=== PATIENT | male | born 1965 | race Caucasian/White ===

== ENCOUNTER 2019-04-08 15:18 | Inpatient (IN) | payer MEDICARE ==
[~2019-04-08] VITALS: Ht 190.5 cm; Wt 114.8 kg
--- NOTE | 2019-04-08 19:00 | NUR ---
REPORT RECEIVED. PATIENT HAS NOT ARRIVED TO ROOM AT THIS TIME.
--- NOTE | 2019-04-08 21:00 | NUR ---
PATIENT ARRIVED VIA STRETCHER ESCORTED BY EMS STAFF. PATIENT HAS NO COMPLAINTS AT THIS TIME. NO DISTRESS NOTED.
[2019-04-08] MEDS ORDERED: XARELTO15 MG PO (22:32)
[2019-04-08] MEDS ORDERED: LIPITOR40 MG PO (22:33)
[2019-04-08] MEDS ORDERED: XANAX0.5 MG PO (22:33)
[2019-04-08] MEDS ORDERED: NORVASC10 MG PO (22:34)
[2019-04-08] MEDS ORDERED: ZITHROMAX 500M500 MG IV (22:34)
[2019-04-08] MEDS ORDERED: COREG12.5 MG PO (22:35)
[2019-04-08] MEDS ORDERED: ROCEPHIN 1 GM/D51 G1 IV (22:35)
[2019-04-08] MEDS ORDERED: HUMALOG 30100 UNITS/ IM (22:36)
[2019-04-08] MEDS ORDERED: LANTUS SOL100 UNIT/1 IM (22:36)
[2019-04-08] MEDS ORDERED: IPRAT-ALBUT 0.5-3 ML NEB (22:37)
[2019-04-08] MEDS ORDERED: OXYCONTIN10 MG PO (22:38)
[2019-04-08] MEDS ORDERED: MORPHINE SULFAT30 M4 PO (22:38)
--- NOTE | 2019-04-09 02:02 | NUR ---
PATIENT SITTING UP TO SIDE OF BED. NO COMPLAINTS AT THIS TIME. NO DISTRESS NOTED.
[2019-04-09 02:29] VITALS: BP 129/69; BMI 31.6
[2019-04-09 04:30] VITALS: BP 130/72
[2019-04-09 07:04] LABS: BASOPHILS 0.1 % (0-2); EOSINOPHILS 0.1 % (0-7); HEMATOCRIT 27.7 % (42.0-54.0); HEMOGLOBIN 9.2 g/dL (13.5-17.5); LYMPHOCYTES 10.3 % (15-50); MCH 26.9 pg (26.0-34.0); MCHC 33.2 g/dL (31.0-37.0); MEAN PLATELET VOLUME 10.4 fL (7.4-10.4); MONOCYTES 8.2 % (2-11); NEUTROPHILS 80.3 % (40-80); PLATELET COUNT 245 10x3/uL (130-400); RBC 3.42 10x6/uL (4.20-6.10); RDW 13.5 % (11.5-14.5); WBC 13.7 10x3/uL (4.8-10.8)
--- NOTE | 2019-04-09 07:10 | NUR ---
PATIENT'S FSBS READ HI WITH 2 CHECKS. DEREK ROBLERO NOTIFIED. 20 UNITS OF HUMALOG GIVEN. SLIDING SCALE CHANGED FROM ACHS TO Q6HRS AND BLOOD GLUCOSE LAB ORDERED.
[2019-04-09 07:32] LABS: CALCIUM 7.3 mg/dL (8.5-10.1); CARBON DIOXIDE 17.8 mmol/L (21.0-32.0); CREATININE - SERUM 5.5 mg/dL (0.6-1.3); MAGNESIUM - SERUM 2.3 mg/dL (1.8-2.4); PHOSPHOROUS 5.4 mg/dL (2.5-4.9); POTASSIUM - SERUM 3.8 mmol/L (3.5-5.1)
[2019-04-09 08:17] VITALS: BP 138/69
--- NOTE | 2019-04-09 09:00 | NUR ---
THIS NURSE BROUGHT IN PATIENTS MEDICATIONS. PATIENT ASKED ABOUT MORPHINE. THIS NURSE STATED THAT HE DID NOT HAVE MORPHINE ORDERED. PATIENT KEPT TELLING THIS NURSE HOW HE IS ON MORPHINE TID , 30MLS AT HOME. HE STATED THAT IT WOULD BE BETTER IF HE COULD HAVE IT IV WHILE IN THE HOSPITAL. THIS NURSE STATED THAT WHEN SHE SAW DR. GONZALEZ OR JOSE ROBLERO, SHE WOULD ASK THEM ABOUT THE MORPHINE. PATIENT GOT MAD AT THIS NURSE WHEN HE REPEATED EVERYTHIN HE SAID AND ASKED WHEN DR GONZALEZ OR JOSE WOULD BE IN. THIS NURSE STATED I DON'T KNOW THEIR SCHEDULE AND I CAN'T READ THEIR MIND TO SEE WHEN THEY WILL BE HERE. THIS NURSE STATED THAT ALL THE DOCTOR WILL BE MAKING ROUNDS TODAY. PATIENT THREW HIS MEDICATION CUP ON THE FLOOR. WOULD NOT LET NURSE RECHECK HIS GLUCOSE LEVEL
--- NOTE | 2019-04-09 11:12 | NUR ---
DR ANDERSEN INTO SEE PATIENT. NEW ORDERS RECEIVED. THIS NURSE HAS NOT SEEN DR GONZALEZ OR JOSE ROBLERO ON UNIT. THIS NURSE CALLED JOSE ANAYA TALKED TO HER IN REGARDS OF PATIENTS WANTING MORPHINE 30MG TID. JOSE ROBLERO STATED THAT SHE WILL HAVE TO TALK WITH RENAL AND DR GONZALEZ BEFORE SHE ORDERS ANY MORPHINE FOR THIS PATIENT.
--- NOTE | 2019-04-09 11:47 | NUR ---
Pt admitted overnight to M2 unit. He has history of DM2, RBKA, neuropathy. He has a 2cm x 1.5cm thick callous on the plantar aspect of left foot. There is also a scab/callous 0.5cm x 0.5cm on plantar/midfoot. He states the midfoot callous was from stepping on a tack and not realizing it due to the neuropathy. He has had 2 toes amputated on his left foot. He does not want the callouses "dug out" but wants them "gone". Applied some hydrogel and covered with LP hydrocolloid dressing. Will monitor as needed.
[2019-04-09 12:05] VITALS: BP 136/72
[2019-04-09 12:28] VITALS: Ht 190.5 cm; Wt 114.8 kg
--- NOTE | 2019-04-09 14:53 | NUR ---
I have reviewed this patient and I concur with the Shift Assessment completed by the Licensed Practical Nurse today this shift.
--- NOTE | 2019-04-09 15:06 | NUR ---
DR ALEGRIA INTO SEE PATIENT. NEW ORDERS RECEIVED. PATIENT GIVEN PRN MORPHINE
--- NOTE | 2019-04-09 19:30 | NUR ---
EVENING ROUNDS MADE. PT SITTING UP IN BED. DENIES PAIN AT THIS TIME. DENIES FURTHER NEEDS. FALL PRECAUTIONS IN PLACE. WILL CTM.
[2019-04-09 20:00] VITALS: BP 133/80
[2019-04-10] VITALS: BP 127/73
[2019-04-10 04:00] VITALS: BP 122/76
--- NOTE | 2019-04-10 04:45 | NUR ---
PATIENT C/O PAIN 9/10 "EVERYWHERE". PRN PAIN MED GIVEN, SEE EMAR. CL IN REACH, BED IN LOWESEST POSITION. WILL CTM.
[2019-04-10 05:08] LABS: BASOPHILS 0.1 % (0-2); EOSINOPHILS 0.8 % (0-7); HEMATOCRIT 26.2 % (42.0-54.0); HEMOGLOBIN 8.9 g/dL (13.5-17.5); IMMATURE GRANULOCYTES 1.3 % (0-5); LYMPHOCYTES 14.1 % (15-50); MCV 79.4 fL (80.0-100.0); MEAN PLATELET VOLUME 9.6 fL (7.4-10.4); MONOCYTES 9.6 % (2-11); NEUTROPHILS 74.1 % (40-80); PLATELET COUNT 269 10x3/uL (130-400); RDW 13.4 % (11.5-14.5); WBC 11.9 10x3/uL (4.8-10.8)
[2019-04-10 05:46] LABS: ANION GAP 19.8 mmol/L (8-16); CARBON DIOXIDE 19.4 mmol/L (21.0-32.0); CREATININE - SERUM 4.9 mg/dL (0.6-1.3); PHOSPHOROUS 6.2 mg/dL (2.5-4.9)
[2019-04-10 05:51] LABS: POTASSIUM - SERUM 3.2 mmol/L (3.5-5.1)
[2019-04-10 09:43] VITALS: BP 142/73
[2019-04-10 11:13] LABS: % SATURATION 6 % (15-55); IRON 19 ug/dl (35-150); TOTAL IRON BIND CAPACITY 311 ug/dl (260-445); UNSAT IRON BIND CAPACITY 292 ug/dl (150-375)
[2019-04-10 13:27] VITALS: BP 121/65
--- NOTE | 2019-04-10 13:58 | NUR ---
I have reviewed this patient and I concur with the Shift Assessment completed by the Licensed Practical Nurse today this shift.
[2019-04-10 17:04] VITALS: BP 129/67
--- NOTE | 2019-04-10 19:49 | NUR ---
EVENING ROUNDS MADE. PT SITTING UP IN BED RESTING. DENIES PAIN AT THIS TIME. LARGE ICE WATER PROVIDED. R BKA CLEAN AND DRY. IV TO R FA, [facility]. NORMAL SINUS ON TELE. PT DENIES FURTHER CONCERNS AT THIS TIME. FALL PRECAUTIONS IN PLACE. PROSTETIC AT BEDSIDE. BED LOWERED AND LOCKED. CL IN REACH. WILL CTM.
[2019-04-10 20:00] VITALS: BP 111/64
[2019-04-11] VITALS: BP 111/58
--- NOTE | 2019-04-11 03:28 | NUR ---
I have reviewed this patient and I concur with the Shift Assessment completed by the Licensed Practical Nurse today this shift.
[2019-04-11 04:00] VITALS: BP 145/69
[2019-04-11 04:08] LABS: BASOPHILS 0.4 % (0-2); EOSINOPHILS 0.8 % (0-7); HEMATOCRIT 24.6 % (42.0-54.0); HEMOGLOBIN 8.2 g/dL (13.5-17.5); IMMATURE GRANULOCYTES 1.1 % (0-5); LYMPHOCYTES 22.5 % (15-50); MCH 26.5 pg (26.0-34.0); MCHC 33.3 g/dL (31.0-37.0); MCV 79.6 fL (80.0-100.0); NEUTROPHILS 64.2 % (40-80); PLATELET COUNT 264 10x3/uL (130-400); RBC 3.09 10x6/uL (4.20-6.10); RDW 14.1 % (11.5-14.5); WBC 9.6 10x3/uL (4.8-10.8)
[2019-04-11 04:22] LABS: CREATININE - SERUM 4.6 mg/dL (0.6-1.3); MAGNESIUM - SERUM 1.7 mg/dL (1.8-2.4); PHOSPHOROUS 6.1 mg/dL (2.5-4.9)
[2019-04-11 04:23] LABS: CALCIUM 6.9 mg/dL (8.5-10.1)
--- NOTE | 2019-04-11 08:21 | NUR ---
PT AWAKE ANDORIENTED SITTING ON THE SIDE OF THE BED. PT IS VERY UPSET WITH HOW HIS CARE HAS GONE. HE STATES THAT HE HAS NOT RECIEVED A SHOWER OR LINNEN CHANGE IN 3 DAYS AND FEELS THOUGH HE'S BEEN NEGLECTED. PT STATES HE WILL BE LEAVING IN ABOUT 2 HOURS. HE WOULD LIKE IF HE WAS ABLE TO D/C PROPPERLY BUT HE STATES HE WILL AMA IF HE HAS TOO. I INFORMED THE PT ABOUT THE FACT INSURANCE WILL NOT COVER HIS STAY IF LEAVES AMA, PT STATES "THERE COMES A TIME WHEN IT'S NOT ABOUT MONEY OR INSURANCE SO I'LL BE LEAVING EITHER WAY". HAVE PAGED JOSE TWICE TO GET A D/C ORDER, HAVE NOT HEARD BACK YET.
--- NOTE | 2019-04-11 08:27 | NUR ---
RACHNA DELVALLE OFFERED THE PT A SHOWER, PT REFUSED STATING HE'LL SHOWER AT HOME.
[2019-04-11 08:38] VITALS: BP 131/78
[2019-04-11] MEDS ORDERED: ZPAK PO (10:11)
--- NOTE | 2019-04-11 11:06 | MORECARE ---
CASE MANAGEMENT DISCHARGE SUMMARY PATIENT: CATRINA HEARN D UNIT: [id number] ADM DATE: 04/08/19 AGE: 53 : 67 SEX: M ROOM/BED: D.2103 AUTHOR: NORMA LANG PHYSICIAN: REFERRING PHYSICIAN: NOELLE GONZALEZ MD DATE OF SERVICE: 04/11/19 Discharge Plan Patient Name: CATRINA HEARN Facility: [facility]:[place] : 1965 Planned Disposition: Home Anticipated Discharge Date: 04/11/19 Discharge Date: Expected LOS: 3 Initial Reviewer: [email or web address] Initial Review Date: 04/11/2019 Generated: 04/11/19 12:05 pm DCPIA - Discharge Planning Initial Assessment Updated by [email or web address]: Christopher Hernandez on 04/11/19 11:05 am * Is the patient Alert and Oriented? Yes * How many steps to enter\exit or inside your home? * PCP DR. PITT * Pharmacy [facility] * Preadmission Environment Home with Family * ADLs Independent * Equipment Cane Other Walker Wheelchair * Other Equipment RIGHT LEG PROSTHESIS NO MEDICAL EQUIPMENT PROVIDER PREFERENCE * List name and contact numbers for known caregivers / representatives who currently or will assist patient after discharge: MALLY HEARN, SPOUSE, * Verbal permission to speak to the caregivers and representatives has been obtained from the patient. N/A * Community resources currently utilized None * Please name any agencies selected above. NONE * Additional services required to return to the preadmission environment? No * Can the patient safely return to the preadmission environment? Yes * Has this patient been hospitalized within the prior 30 days at any hospital? No Patient Name: CATRINA HEARN Page [phone] at 1106 All edits/amendments must be made on the electronic document DICTATION DATE: 04/11/19 110 CHIEF LIBRARIAN BRANCH: MARCELINO 04/11/19 110 RPT#: [id number] DC DATE: STATUS: ADM IN [facility] [address] [place] [address] END OF REPORT
--- NOTE | 2019-04-11 11:20 | MORECARE ---
CASE MANAGEMENT DISCHARGE SUMMARY PATIENT: CATRINA HEARN UNIT: [id number] ADM DATE: 04/08/19 AGE: 53 : 67 SEX: M ROOM/BED: D.2103 AUTHOR: PRECIOUSDOC PHYSICIAN: REFERRING PHYSICIAN: NOELLE GONZALEZ MD DATE OF SERVICE: 04/11/19 Discharge Plan Patient Name: CATRINA HEARN Facility: [facility]:[place] : 1965 Planned Disposition: Home Anticipated Discharge Date: 04/11/19 Discharge Date: Expected LOS: 3 Initial Reviewer: [email or web address] Initial Review Date: 04/11/2019 Generated: 04/11/19 12:19 pm Comments DCP- Discharge Planning Updated by [id number]: Christopher Hernandez on 04/11/19 10:[address] Patient Name: CATRINA HEARN Admission Status: Elective Accout number: [id number] Admission Date: 04-08-2019 : 1965 Admission Diagnosis: Attending: NOELLE GONZALEZ Current LOS: 3 Anticipated DC Date: 04-11-2019 Planned Disposition: Home Primary Insurance: MEDICARE A & B Discharge Planning Comments: CM MET WITH PT IN ROOM TO DISCUSS DISCHARGE PLANNING AND NEEDS. PT REPORTS LIVING AT HOME INDEPENDENTLY WITH HIS . PT HAS A CANE, WALKER AND WHEELCHAIR. PT HAS NO MEDICAL EQUIPMENT PROVIDER PREFERENCE. PT HAS NO OUTSIDE SERVICES ASSISTING IN THE HOME. CM DISCUSSED AVAILABILITY OF HOME HEALTH, REHAB SERVICES AND MEDICAL EQUIPMENT. PT DENIES DISCHARGE NEEDS, REPORTS HIS WILL PICK HIM UP FOR DISCHARGE HOME. IMPORTANT MESSAGE FROM MEDICARE PROVIDED AND EXPLAINED. Straddle Bug Driver: Christopher Hernandez DCPIA - Discharge Planning Initial Assessment Updated by [id number]: Christopher Hernandez on 04/11/19 11:05 am * Is the patient Alert and Oriented? Yes * How many steps to enter\exit or inside your home? * PCP DR. PITT * Pharmacy [facility] * Preadmission Environment Home with Family * ADLs Independent * Equipment Cane Other Walker Wheelchair * Other Equipment RIGHT LEG PROSTHESIS NO MEDICAL EQUIPMENT PROVIDER PREFERENCE * List name and contact numbers for known caregivers / representatives who currently or will assist patient after discharge: MALLY HEARN, SPOUSE, * Verbal permission to speak to the caregivers and representatives has been obtained from the patient. N/A * Community resources currently utilized None * Please name any agencies selected above. NONE * Additional services required to return to the preadmission environment? No * Can the patient safely return to the preadmission environment? Yes * Has this patient been hospitalized within the prior 30 days at any hospital? No Coverage Notice Reviewer: [email or web address] Aysha Hernandez Notice Issued Date-Time: 04/11/2019 9:45 Notice Type: IM Discharge Notice Notice Delivered To: Patient Relationship to Patient: Health Physics Technician Name: Delivery Method: HAND - Hand Delivered Babs Days: Prior Verbal Notification: Recipient Understood Notice: Yes Recipient Signature: Yes Med Rec Note Co-signed by Attending: Coverage Notice Comment: Last DP export: 04/11/19 10:05 a Patient Name: CATRINA HEARN Page 48445 at 1120 All edits/amendments must be made on the electronic document DICTATION DATE: 04/11/191118 JOSS HOUSE KEEPER: MARCELINO 04/11/19 111 RPT#: [id number] DC DATE: STATUS: ADM IN [facility] [address] [place] [address] END OF REPORT
--- NOTE | 2019-04-11 14:11 | NUR ---
PT ESCORTED OUT VIA WHEELCHAIR TO 'S POV. NO COMPLAINTS/CONCERNS/QUESTIONS AT THIS TIME.
--- NOTE | 2019-04-14 18:38 | EC ---
PATIENT:CATRINA HEARN DATE OF SERVICE: 04/08/19 SEX: M MEDICAL RECORD: [id number] DATE OF : [birth year] LOCATION:D.M2 D.210 AGE OF PATIENT: 53 ADMISSION DATE: 04/08/19 REFERRING PHYSICIAN: INTERPRETING PHYSICIAN: LIDIA ROSEN MD ECHOCARDIOGRAM REPORT ECHO CHARGES 4 ECHO COMPLETE Date: 04/09/19 CLINICAL DIAGNOSIS: SOB/HTN/CAD WITH PCI/CKD HX OF CAD/STENTS ECHOCARDIOGRAPHIC MEASUREMENTS (adult normal given) AC root (d.<3.7cm) 4.3 cm LV Septum d (<1.2 cm> 1.5 cm Valve Excursion 2.2 cm LV Septum (systole) 1.8 cm Left Atria (s.<4.0cm> 3.4 cm LVPW d(<1.2cm) 1.4 cm RV (d.<2.3cm) 4.2 cm LVPW (sytole) 1.8 cm LV diastole(<5.6CM) 5.8 cm MV E-F(>70mm/sec) cm LV systole 4.4 cm LVOT Diameter 2.3 cm MV exc.(>10mm) 1.7 cm Est.ejection fraction (50-75%) % DOPPLER: LVIT cm/sec A 84.0 cm/sec E 134 cm/sec LA cm/sec RVSP 21 mmHg LVOT 110 cm/sec AOP1/2T m/s Asc. Ao 147 cm/sec RVOT 99 cm/sec RA cm/sec PA 135 cm/sec AV Gradient Peak 8.59 mmHg AV Mean 4.67 mmHg AV Area 2.8 cm MV Gradient Peak 7.36 mmHg MV Mean 3.25 mmHg MV Area cm COMMENTS: Restaurant Maintenance Technician: Ashok SAPP Web Ui Designer: 3 Dr. Wilkes TAPE# PACS Pericardial Effusion N DATE OF SERVICE: 04/09/2019 FINDINGS: 1. Left ventricular chamber size is within normal limits. Left ventricular systolic function is normal. Overall ejection fraction is estimated at 60%. 2. Left atrium is within normal limits at 3.4 cm. Right atrium and right ventricular chamber sizes are mildly dilated. 3. Valvular structures have normal structure and motion. 4. Doppler interrogation reveals no significant valvular insufficiency or stenosis. Pulmonary systolic pressure is estimated at 21 mmHg. ECHOCARDIOGRAM REPORT [id number] CATRINA HEARN 5. No evidence of pericardial effusion or left ventricular thrombus. TRANSINT:[id number] Voice Confirmation ID: [id number] DOCUMENT ID: [id number] LIDIA ORSEN MD at 1838 CC: [id number] DICTATION DATE: 04/09/19 170 WELDER SHIELDED METAL ARC: 04/09/19 190 DIS IN 04/11/19 [facility] [address] [place] [id number]
== END 2019-04-11 14:11 | disposition home or self-care (01) | DRG 682 ==
LOC: D.M2 15:18
PROVIDERS: Family Medicine Adult Medicine; ADMIT Family Medicine; ATTEND Family Medicine
DX: N17.0 Acute kidney failure with tubular necrosis (principal); I50.33 Acute on chronic diastolic (congestive) heart failure; I13.0 Hypertensive heart and chronic kidney disease with heart failure and stage 1 through stage 4 chronic kidney disease, or unspecified chronic kidney disease; E87.1 Hypo-osmolality and hyponatremia; F17.213 Nicotine dependence, cigarettes, with withdrawal; J98.11 Atelectasis; E11.22 Type 2 diabetes mellitus with diabetic chronic kidney disease; N18.9 Chronic kidney disease, unspecified; J44.9 Chronic obstructive pulmonary disease, unspecified; I25.10 Atherosclerotic heart disease of native coronary artery without angina pectoris; D64.9 Anemia, unspecified; E11.65 Type 2 diabetes mellitus with hyperglycemia